=== PATIENT | female | born 1985 | race Caucasian/White ===

== ENCOUNTER → 2024-04-19 16:35 | Outpatient (CLI) | payer MEDICAID, SELFPAY ==
--- NOTE | 2024-04-19 16:37 | DI.RAD.S_ITS ---
PROCEDURE: XR KNEE RT 3V INDICATIONS: Right knee strain TECHNIQUE: 3 views of the knee were acquired. COMPARISON: None. FINDINGS: Bones: No fractures or dislocations. No suspicious bony lesions. Soft tissues: No joint effusion. No suspicious soft tissue calcifications. IMPRESSION: No acute bony abnormality or significant effusion. If pain persists, followup imaging in 5-7 days is recommended to exclude occult fracture. Dictated by: Maryann Park M.D. on 04/19/2024 at 17:14 Approved by: Maryann Park M.D. on 04/19/2024 at 17:14
== END ==
LOC: RAD 16:36
PROVIDERS: Referring Provider Nurse Practitioner Family; Visit Provider Nurse Practitioner Family
DX: S86.911A Strain of unspecified muscle(s) and tendon(s) at lower leg level, right leg, initial encounter (principal); X58.XXXA Exposure to other specified factors, initial encounter
CPT/HCPCS: 73562